=== PATIENT | male | born 2000 | race Hispanic/Latino ===

== ENCOUNTER 2022-01-05 22:28 | Emergency (ER) | payer OTHER ==
[~2022-01-05] VITALS: Ht 182.9 cm; Wt 72.6 kg
[2022-01-05] MEDS ORDERED: ACETAMINOPHEN 325 MG TAB PO STA (22:42)
[2022-01-05] MEDS ORDERED: ACETAMINOPHEN 325 MG TAB ONE (23:01)
== END 2022-01-05 23:37 | disposition home or self-care (01) ==
LOC: FSED 22:41
DX: R50.9 Fever, unspecified (principal); B34.9 Viral infection, unspecified
CPT/HCPCS: 83518; 87400; 99283